=== PATIENT | male | born 1950 | race Asian ===

== ENCOUNTER 2017-10-09 11:03 | Outpatient (CLI) | payer OTHER | END 2017-10-09 19:28 | disposition home or self-care (01) | LOC: LABW 11:03 | DX: B35.1 Tinea unguium (principal) | CPT/HCPCS: 36415; 84450; 84460 ==

== ENCOUNTER 2017-11-19 10:36 | Outpatient (CLI) | payer OTHER | END 2017-11-19 19:32 | disposition home or self-care (01) | LOC: LABW 10:36 | DX: B35.1 Tinea unguium (principal) | CPT/HCPCS: 36415; 84450; 84460 ==

== ENCOUNTER 2018-01-23 09:39 | Outpatient (CLI) | payer OTHER | END 2018-01-23 19:35 | disposition home or self-care (01) | LOC: LABW 09:39 | DX: B35.1 Tinea unguium (principal) | CPT/HCPCS: 36415; 84450; 84460 ==

== ENCOUNTER 2019-06-11 11:22 | Outpatient (CLI) | payer OTHER | END 2019-06-11 19:48 | disposition home or self-care (01) | LOC: RAD 11:22 | DX: M25.511 Pain in right shoulder (principal) ==

== ENCOUNTER 2020-11-22 00:15 | Inpatient (IN) | payer OTHER ==
[~2020-11-22] VITALS: Ht 170.2 cm; Wt 77.4 kg
[2020-11-22] VITALS (11 sets, daily range): BP systolic 100–145; BP diastolic 47–73; TEMP 97.9–101.2
[2020-11-22 02:13] LABS: PLATELET COUNT 172 K/uL (142-355)
[2020-11-22 02:18] LABS: POTASSIUM 4.5 mmol/L (3.6-5.2); SODIUM 134 mmol/L (136-145)
[2020-11-22] MEDS ORDERED: SIMV20TA2 PO (12:27)
[2020-11-22] MEDS ORDERED: METF500T PO (12:28)
[2020-11-22] MEDS ORDERED: MIRTAZAPINE7.5 MG PO (12:30)
[2020-11-22] MEDS ORDERED: RISP2TAB2 PO (12:30)
[2020-11-22] MEDS ORDERED: GLIPIZIDE PO (12:32)
--- NOTE | 2020-11-22 14:40 | NUR ---
ASSISTED PATIENT TO CHAIR. PATIENT TOLERATED WELL. DENIES ANY PAIN, NEEDS OR SHORTNESS OF BREATH. CALL LIGHT WITHIN REACH AND PATIENT INSTRUCTED TO CALL FOR ANY ASSISTANCE OR NEEDS.
--- NOTE | 2020-11-22 18:25 | NUR ---
PATIENT TRANSFERRED BACK TO BED WITHOUT DIFFICULTY. NAD NOTED WITH PT AT THIS TIME. PATIENT DENIE ANY PAIN, NEEDS OR C/O OR SHORTNESS OF BREATH. BEDSIDE TABLE WITH PERSONAL ITEMS WITHIN REACH AND CALL LIGHT. NAD NOTED WITH PATIENT AT THIS TIME.
--- NOTE | 2020-11-22 20:14 | NUR ---
SHIFT ASSESSMENT COMPLETED. PATIENT IS RESTING QUIELTY WITH EYES OPEN. NO ACUTE DISTRESS NOTED. VITAL SIGNS TAKEN AND PATIENT DOES NOT HAVE HIS 02 ON AND HIS SPO2 IS STABLE AT 95% RA.
[2020-11-23] VITALS: BP 117/62; TEMP 98.4
[2020-11-23 04:00] VITALS: BP 123/76; TEMP 98.3
[2020-11-23 05:43] LABS: PLATELET COUNT 156 K/uL (142-355)
[2020-11-23 06:19] LABS: POTASSIUM 5.3 mmol/L (3.6-5.2)
--- NOTE | 2020-11-23 06:36 | NUR ---
PATIENT DID FAIRLY WELL THROUGH THE NIGHT. PATIENT DID STATED HE WAS READY TO GO HOME. NO OTHER EVENTS NOTED THROUGH THE NIGHT.
--- NOTE | 2020-11-23 07:11 | NUR ---
PATIENT GIVEN A COMPLETE BED BATH AND LINEN CHANGE. PATIENT WAS ABLE TO WAS HIS PERNEIUM W/O ASSISTANCE. PATIENT WAS NOT ON 02 AT THIS TIME AND WAS NOT IN NO ACUTE DISTRESS. 02 SATS WERE READING 91% ON RA.
[2020-11-23 08:00] VITALS: BP 114/53; TEMP 98.4
[2020-11-23 11:30] VITALS: BP 99/50; TEMP 98.8
--- NOTE | 2020-11-23 15:10 | NUR ---
REC'D CALL FROM NIKKI MENDOZA FROM [employer], PT'S DESIGN CHIEF. UPDATE GIVEN AT THIS TIME. NIKKI REPORTS SHE AND TRESSA BUSTOS WILL BE THE ONES CHECKING ON PT.
[2020-11-23 16:00] VITALS: BP 112/50; TEMP 98.6
[2020-11-23 20:00] VITALS: BP 121/51; TEMP 99.5
--- NOTE | 2020-11-23 20:00 | NUR ---
PT AWAKE AND ORIENTED LAYING IN BED WATCHING TV WITH NO S/S OF PAIN OR DISTRESS NOTED, RESP RATE NONLABORED, ON ROOM AIR, 20G IV LOCK INTACT TO R FA AND 20G IV INTACT TO L HAND WITH NS INFUSING AT 50ML/HR, SKIN WARM AND DRY, RADIAL PULSES INTACT, DENIES ANY PROBLEMS AT THIS TIME, BROUGHT PT WATER PER REQUEST. WILL MONITOR CLOSELY, RAILS UP, BED IN LOW POSITION, CALL LIGHT IN REACH.
--- NOTE | 2020-11-23 22:20 | NUR ---
PT AWAKE WATCHING TV WITH NO S/S OF ACUTE DISTRESS OR PAIN NOTED, DENIES ANY NEEDS OR PROBLEMS AT THIS TIME,RESP RATE NONLABORED, ON ROOM AIR, 200G IV INTACT TO L HAND WITH NS INFUSING AT 50ML/HR AND 20G IV LOCK INTACT TO R FA, TELEMETRY IN USE. FSBS 343, GAVE 4 UNITS SSI PER ORDER TO ABD. WILL MONITOR CLOSELY, RAILS UP, BED IN LOW POSITION, CALL LIGHT IN REACH. PT REMAINS ON ISOLATION FOR COVID-19.
[2020-11-24 00:01] VITALS: BP 114/57; TEMP 99.8
--- NOTE | 2020-11-24 00:05 | NUR ---
RESTING IN BED WITH EYES CLOSED, NO S/S OF PAIN OR DISTRESS NOTED, REMAINS ON ROOM AIR, WILL MONITOR CLOSELY, RAILS UP, BED IN LOW POSITION, CALL LIGHT IN REACH.
--- NOTE | 2020-11-24 01:10 | NUR ---
PT ATTEMPTED TO USE URINAL AND GOT SOME URINE ON FLOOR AND ON GOWN. PT WASHED OFF, GOWN AND BLANKET CHANGED DUE TO WET WITH URINE. NEW TELEMETRY LEAD APPLIED. PT DENIES ANY NEEDS OR PROBLEMS, REMAINS ON ROOM AIR WITH SAT OF 92%, NO ACUTE DISTRESS NOTED, BOTH IV SITES INTACT, TELEMETRY IN USE, ENCOURAGED TO CALL NEEDED, RAILS UP, BED IN LOW POSITION, CALL LIGHT IN REACH.
--- NOTE | 2020-11-24 03:45 | NUR ---
PATIENT'S SPO2 IS 90% ON ROOM AIR, PT PLACED ON 2LPM VIA NC. SPO2 INCREASED TO 95%.
[2020-11-24 04:00] VITALS: BP 140/56; TEMP 98.3
[2020-11-24 08:00] VITALS: BP 135/55; TEMP 98.8
[2020-11-24 08:12] LABS: POTASSIUM 4.9 mmol/L (3.6-5.2)
[2020-11-24 08:43] LABS: PLATELET COUNT 148 K/uL (142-355)
--- NOTE | 2020-11-24 11:20 | NUR ---
NOTIFIED BY IMPROVEMENT SPECIALIST ASHLEY THAT TEL WAS SHOWING PT TO HAVE A HR PF 146. UPON ENTERING THE ROOM PT WAS IN THE BR AMBULATING BACK TO CHAIR. PT WAS IN NO ACUTE DISTRESS AND NO CO AT THIS TIME. ASSISTED PT BACK TO BED AND HR SLOWLY GOING DOWN TO 114 BUT NOTED TO BE IRREG WITH ASCULATATION. 1130 DR ABRAHAM INFORMED OF PT'S HR TO BE IRREG AT THIS TIME WITH A RATE OF 114. NEW ORDERS REC'D TO OBTAIN 12 LEAD EKG
[2020-11-24 12:00] VITALS: BP 126/73; TEMP 97.6
--- NOTE | 2020-11-24 12:04 | NUR ---
I returned call to Linda Cordon [phone] who is pts 6a-6p caregiver today from [facility]. She stated she will sign pts dc papers and pick him up in [facility] when notified of discharge. She confirmed pt is a "romero of the [facility]". He does not have any family members in his home, only 24/7 caregivers from [place]. She stated pt has all of his usual meds and has PPE to care for pt at home. I also spoke with Adelina Mclaughlin [phone] who is pts interim case juanito. She also confirmed pt is a romero of the [facility] and to notify her and then caregiver when he is ready to discharge. She stated if he has any new medicine prescriptions that they must be called into [facility] in [place] [phone], they will be picked up that night and will be ready to dispense to pt the next morning. She reminded us to please be sure that all new meds are administered to pt before discharge on same day if possible, so that they could start the next dose the next am. Nurse- Sana Alberto RN notified and verbalizes understanding.
--- NOTE | 2020-11-24 12:45 | NUR ---
DR ABRAHAM INFORMED OF EKG RESULTS AND OF PT'S SATS NOTED TO DROP TO 90 % ON RA PER RESP. SO NC AR 2L PLACED ON PT AT THIS TIME. SATS UP TO 95%
--- NOTE | 2020-11-24 13:00 | NUR ---
NOTIFIED PER CLINICAL TRIALS MANAGER PT'S HR NOTED TO BE 120 AND IRREG. WENT TO PT'S ROOM AND PT NOTED TO BE IN BR AGAIN AT THIS TIME MO DSITRESS NOTED AT THIS TIME. ASSISTED PT BACK TO BED. PT NOTED TO BE IRREG BUT HR DECREASED SOON PT IS AT REST. PT REMOVED NC PRIOR TO GOING TO BR AND SATS 94% OON RA
--- NOTE | 2020-11-24 13:30 | NUR ---
PT ASSISTED TO BATHROOM BY YAKOV CHILDRESS RN. PT SOCKS CHANGED DUE TO BEING SOILED WITH URINE. PT'S FLOOR NOTED TO HAVE URINE IN IT. PT'S FLOOR CLEANED AT THIS TIME. PT ASSISTED BACK TO BED. ARNULFO NAGY GAVE PT URINAL AND INSTRUCTED HIM TO USE THE URINAL, URINAL PLACED WITHIN PT REACH.
--- NOTE | 2020-11-24 15:20 | NUR ---
PT SITTING UP ON BEDSIDE AT THIS TIME WATCHING TV. NO DISTRESS NOTED.
--- NOTE | 2020-11-24 15:35 | NUR ---
PT STANDING UP AT BEDSIDE. PT VOICES TO ARNULFO KENNEDY "I NEED TO PEE" PT GIVEN URINAL AND INSTRUCTED TO URINATE IN THE URINAL. PT VOIDED IN THE FLOOR AT THE BEDSIDE AND NOT IN THE URINAL. PT'S FLOOR CLEANED AND PT ASSISTED BACK TO BED. PT INSTRUCTED TO CALL IF HE NEEDS TO GET UP.
[2020-11-24 16:00] VITALS: BP 151/89; TEMP 101.2
--- NOTE | 2020-11-24 16:45 | NUR ---
PT NOTED TO HAVE A TEMP 101.2 ORALLY. PT VERY DROWSY WELL AT THIS TIME. PT HAD ANOTHER EPISODE OF HAVING URGE TO VOID BUT UNABLE TO GET UP IN TIME TO USE URINAL. WILL NOTIFIY DR ABRAHAM.
--- NOTE | 2020-11-24 17:15 | NUR ---
NEW ORDER REC'D FROM DR ABRAHAM TO OBTAIN IN AND OUT URINE AT THIS TIME. URINE OBTAINED PER STERILE TECHNIQUE PER MD ORDER. URINE OBSERVED AND NOTED TO BE CLEAR YELLOW. URINE SENT TO LAB AND PRN MEDS GIVEN FOR TEMP
--- NOTE | 2020-11-24 19:45 | NUR ---
PT AROUSES TO CLIENT SERVICES ADMINISTRATOR BEING IN ROOM, ALERT AND ORIENTED DENIES ANY NEEDS AT THIS TIME, ANSWERS QUESTIONS SLOWLY BUT APPROPRIATLY(ACTS SAME PREVIOUS NIGHT THAT CLIENT SERVICES ADMINISTRATOR CARED FOR PT), SMILING AT CLIENT SERVICES ADMINISTRATOR WHEN CLIENT SERVICES ADMINISTRATOR STATED SOMETHING FUNNY, IV SITES INTACT AND NS INFUSING AT 50ML/HR, ON ROOM AIR, TELEMETRY IN USE WITH REGULAR RATE. ORAL TEMP NOW 99.7(DECREASED), RESP RATE NONLABORED BUT RATE SLIGHTLY ELEVATED AROUND HIGH 20s PT DENIES ANY PROBLEMS BREATHING OR PAIN. URINAL IN REACH, BED IN LOW POSITION, CALL LIGHT IN REACH, RAILS UP X3, HOB REMAINS ELEVATED, WILL MONITOR CLOSELY.
[2020-11-24 20:00] VITALS: BP 121/59; TEMP 99.7
--- NOTE | 2020-11-24 21:48 | NUR ---
PT URINATED IN THE BED WHILE ATTEMPTING TO USE THE URINAL. PT'S LINENS AND BRIEF WERE CHANGED AND PT'S BOTTOM CLEANED WITH WASHCLOTH AND WARM WATER. PT TOLERATED LINEN CHANGE WELL WITH HOB LOWERED, NO ACUTE DISTRESS WAS NOTED.
--- NOTE | 2020-11-24 23:00 | NUR ---
RESTING WITH EYES CLOSED IN POSITION OF COMFORT, NO S/S OF PAIN OR DISTRESS NOTED, IV SITES INTACT WITH NS INFUSING AT 50ML/HR, ON ROOM AIR, TELEMETRY IN USE, WILL MONITOR CLOSELY, RAILS UP, BED IN LOW POSITION, ON ISOLATION FOR COVID.
[2020-11-25] VITALS: BP 126/64; TEMP 97.8
--- NOTE | 2020-11-25 01:50 | NUR ---
PT AROUSES AND STATES HE NEEDS TO URINATE, ASSISTED PT TO GET URINAL, BEFORE RN ICU COULD GET DEPEND UNDONE SO THAT PT COULD URINATE IN URINAL PT BEGAN TO URINATE AND COULD NOT HOLD IT. DID URINATE 500ML CLEAR LIGHT YELLOW URINE IN URINAL. DEPEND AND CHUX UNDER PT CHANGED AND PT WIPED WITH WET WIPE(PT WIPED HIS FRONT AREA PER SELF) ASSISTED TO ROLL SIDE TO SIDE SO THAT DEPEND/CHUX COULD BE CHANGED UNDER HIM. DENIES ANY OTHER NEEDS OR PROBLEMS, NO ACUTE DISTRESS NOTED, RESP RATE 22 NONLABORED, IV SITES INTACT WITH FLUID ONGOING, TELEMETRY IN USE, ENCOURAGED TO CALL NEEDED, RAILS UP X3, BED IN LOW POSITION, CALL LIGHT IN REACH, WILL MONITOR CLOSELY.
--- NOTE | 2020-11-25 03:42 | NUR ---
RESTING WITH EYES CLOSED, NO S/S OF PAIN OR DISTRESS NOTED, WILL MONITOR CLOSELY, RAILS UP, BED IN LOW POSITION, CALL LIGHT IN REACH.
[2020-11-25 04:00] VITALS: BP 141/73; TEMP 97.5
--- NOTE | 2020-11-25 05:51 | NUR ---
RESTING IN BED IN POSITION OF COMFORT WITH EYES CLOSED, NO S/S OF PAIN OR DISTRESS NOTED, RESP RATE NONLABORED, ON ROOM AIR, IV SITES INTACT AND NS INFUSING AT 50ML/HR, TELEMETRY IN USE, WILL MONITOR CLOSELY, RAILS UP X3, BED IN LOW POSITION, CALL LIGHT AND URINAL IN PT'S REACH.
[2020-11-25 08:00] VITALS: TEMP 98.3
[2020-11-25 08:17] LABS: PLATELET COUNT 153 K/uL (142-355)
--- NOTE | 2020-11-25 08:26 | NUR ---
ROOM AIR SPO2 AT 88%. PLACED PT ON 2LPM NC AT 28%. SPO2 NOW AT 92%
[2020-11-25 08:44] LABS: POTASSIUM 4.3 mmol/L (3.6-5.2)
[2020-11-25 12:20] VITALS: BP 121/67; TEMP 103.3
[2020-11-25 16:00] VITALS: BP 120/69; TEMP 99.3
[2020-11-25 20:00] VITALS: BP 138/73; TEMP 98.8
[2020-11-26] VITALS: BP 132/63; TEMP 98.2
--- NOTE | 2020-11-26 03:22 | NUR ---
LATE ENTRY: 11/25/20 PATIENT HAS HAD SEVERAL RUNS OF V TACH BUT THEY ARE NOT SUSTAINED. I CALLED THE ER DOCTOR AND REPORTED ON THE PATIENT. THE DOCTOR SAID,"IF ITS NOT SUSTAINED AND HE HAS NO SYMPTOMS LETS JUST WATCH HIM."
--- NOTE | 2020-11-26 03:28 | NUR ---
LATE ENTRY: 11/25/20 2200 PATIENT HAS HAD HIS BRIEF CHANGED AND WAS REPOSITIONED.
[2020-11-26 04:00] VITALS: BP 134/61; TEMP 98.8
--- NOTE | 2020-11-26 06:41 | NUR ---
patient was changed and repositioned in bed
[2020-11-26 06:49] LABS: PLATELET COUNT 145 K/uL (142-355)
[2020-11-26 07:18] LABS: POTASSIUM 4.3 mmol/L (3.6-5.2)
[2020-11-26 08:13] VITALS: BP 105/56; TEMP 99.9
[2020-11-26 11:53] VITALS: BP 108/60; TEMP 98.3
[2020-11-26 16:23] VITALS: BP 130/68; TEMP 98.7
[2020-11-26 20:00] VITALS: BP 110/56; TEMP 99.2
--- NOTE | 2020-11-26 21:45 | NUR ---
NEW 22G TO THE LEFT HAND INITIATED AT THIS TIME. NO S/S OF EDEMA OR ERRYTHEMA TO THE SITE. IV FLUSHED WELL AND NO DISTRESS NOTED.
[2020-11-27] VITALS (7 sets, daily range): BP systolic 97–141; BP diastolic 55–65; TEMP 98.2–103.1
[2020-11-27 06:12] LABS: PLATELET COUNT 151 K/uL (142-355)
[2020-11-27 06:41] LABS: POTASSIUM 4.1 mmol/L (3.6-5.2)
--- NOTE | 2020-11-27 12:43 | NUR ---
PER PATIENT'S REQUEST, TV TURNED TO JAZZ MUSIC CHANNEL. PATIENT IS SMILING AND CONVERSING WITH STAFF.
--- NOTE | 2020-11-27 19:45 | NUR ---
PT. HAD A FEVER OF 101.3. TYLENOL 100 MG IVPB INFUSING AT THIS TIME.
[2020-11-28] VITALS: BP 114/49; TEMP 98
--- NOTE | 2020-11-28 | NUR ---
PT'S TEMP HAS RESOLVED TO 98.0.
[2020-11-28 04:00] VITALS: BP 100/48; TEMP 99.3
[2020-11-28 05:42] LABS: PLATELET COUNT 173 K/uL (142-355)
[2020-11-28 06:15] LABS: POTASSIUM 3.8 mmol/L (3.6-5.2)
[2020-11-28 08:00] VITALS: BP 137/74; TEMP 98.2
[2020-11-28 12:00] VITALS: BP 103/62; TEMP 101.9
[2020-11-28 16:00] VITALS: BP 105/46; TEMP 97.6
[2020-11-28 20:00] VITALS: BP 124/53; TEMP 101.2
--- NOTE | 2020-11-28 21:25 | NUR ---
SHIFT ASSESSMENT COMPLETED. PATIENT NOTED WITH A FEVER OF 101.2. TYLENOL IV GIVEN PER PRN ORDER.
[2020-11-29] VITALS: BP 121/77; BP 129/61; TEMP 101.3; TEMP 98.2
[2020-11-29 04:00] VITALS: BP 127/44; TEMP 102.7
[2020-11-29 05:36] LABS: PLATELET COUNT 192 K/uL (142-355)
[2020-11-29 06:04] LABS: POTASSIUM 4.3 mmol/L (3.6-5.2)
--- NOTE | 2020-11-29 06:32 | NUR ---
PATIENT NOTED WITH A FEVER OF 102.7 ORAL. PATIENT GIVEN TYLENOL IV 1000 MG PRN ORDERED.
[2020-11-29 08:00] VITALS: BP 116/62; TEMP 99.8
--- NOTE | 2020-11-29 11:27 | NUR ---
PT HIGH FOWLERS IN BED WATCHING TV. PT ALERT. PT WILL GIVE VERBAL FEEDBACK, LOGICAL FEEDBACK. UPON WALKING IN PTS ROOM TO ADMINISTER AM MEDS PT WAS STANDING UP IN THE BATHROOM WITH DEPENDS INTACT BUT SATURATED WITH URINE. ASSISTED PT AND CHANGED DEPENDS AND ASSISTED PT TO BED. PT SELF-FED BREAKFAST WITH SET-UP NEEDED. PTS LEVEMIR NOT GIVEN R/T PT ONLY EATING 75% OF BREAKFAST. PT CONTINUES TO APPEAR UNFOCUSED, BUT WILL FOLLOW VERBAL COMMAND. BED ALARM ON.
[2020-11-29 12:00] VITALS: BP 129/70; TEMP 99.7
[2020-11-29 16:00] VITALS: BP 121/60; TEMP 100.4
[2020-11-29 20:00] VITALS: BP 119/64; TEMP 99.2
--- NOTE | 2020-11-29 21:59 | NUR ---
PM. MEDS GIVEN AT THIS TIME. PT. TOLERATED WELL. NO S/S OF ACUTE DISTRESS NOTED AT THIS TIME. PT'S BS WAS 82. NO COVERAGE NEEDED.
--- NOTE | 2020-11-30 01:12 | NUR ---
PT. TEMP IS 101.3. GAVE TYLENOL 1000 MG IVB. PT'S TEMP CURRENTLY DOWN TO 99.2
[2020-11-30 04:00] VITALS: BP 143/74; TEMP 99.2
[2020-11-30 05:34] LABS: PLATELET COUNT 215 K/uL (142-355)
[2020-11-30 05:46] LABS: POTASSIUM 4.2 mmol/L (3.6-5.2)
[2020-11-30 08:00] VITALS: BP 115/56; TEMP 100.4
--- NOTE | 2020-11-30 10:44 | NUR ---
PT. SPO2 WAS 79-88% ON 2LNC HE WAS PLACAED ON 50% VENTIMASK. IS TOLERATING WELL. WILL CONTINUE TO MONITOR.
[2020-11-30 12:00] VITALS: BP 108/69; TEMP 100.1
[2020-11-30 16:00] VITALS: BP 120/67; TEMP 98.4
[2020-11-30 20:00] VITALS: BP 157/74; TEMP 98.5
[2020-12-01] VITALS: BP 133/45; TEMP 100
[2020-12-01 04:00] VITALS: BP 104/56; TEMP 99.2
[2020-12-01 06:07] LABS: POTASSIUM 4.5 mmol/L (3.6-5.2)
[2020-12-01 06:45] LABS: PLATELET COUNT 288 K/uL (142-355)
[2020-12-01 08:00] VITALS: BP 122/60; TEMP 100.1
[2020-12-01 12:00] VITALS: BP 97/43; TEMP 98.6
[2020-12-01 16:00] VITALS: BP 136/76; TEMP 98.8
[2020-12-01 20:00] VITALS: BP 116/62; TEMP 100.5
[2020-12-02] VITALS: BP 112/50; TEMP 98.9
[2020-12-02 04:00] VITALS: BP 118/54; TEMP 98.7
[2020-12-02 05:01] LABS: PLATELET COUNT 317 K/uL (142-355)
[2020-12-02 07:30] VITALS: BP 135/58; TEMP 101.5
[2020-12-02 12:00] VITALS: BP 135/58; TEMP 101.5
--- NOTE | 2020-12-02 15:05 | NUR ---
PT TEMP 100.1, IBUPROFEN ADMINISTERED AT THIS TIME, WILL REASSESS
[2020-12-02 16:00] VITALS: BP 121/66; TEMP 99.2
[2020-12-02 20:00] VITALS: BP 115/61; BP 126/68; TEMP 100.8; TEMP 99.7
[2020-12-03] VITALS: BP 120/70; TEMP 99.5
[2020-12-03 04:00] VITALS: BP 139/79; TEMP 99.1
--- NOTE | 2020-12-03 04:59 | NUR ---
RT called to PT room for decreased SATs.PT walked restroom and back to bed. SATs mid 80's. PT on 6L NC. Placed PT on 40% Venti. Nurse and RT @ bedside. RT changed PT back over to 4L NC. PT maintaing SATs of 91%.
[2020-12-03 05:55] LABS: PLATELET COUNT 360 K/uL (142-355)
--- NOTE | 2020-12-03 06:09 | NUR ---
Patient has been awake a large portion of this shift. He has repeated got out of bed, and attempting to walk to bathroom without assistance. He doesn't make it to the bathroom before staff gets to the room. Bed alarm is set and staff runs to the room, but has to dress out in proper ppe, before entering the room. d/t patient being covid positive. Patient is educated about the risk of falls, and reminded to use the call light for assistance. Patient is on O2 @ 4 lpm, via n/c, and his O2 sat downs to 85-87 when he is off of the O2, and ambulating to bathroom. It comes back up after patient returns to bed and gets back on his O2, via n/c. Patient has urinated on the floor all 3 times that he has ambulated to the bathroom, with assistance. Pericare provided and briefs changed. Call light is within reach and bed alarm is on. Tele is being monitored at nurses station. No acute distress noted. via n/c and the last time that he
[2020-12-03 08:00] VITALS: BP 153/66; TEMP 99.5
--- NOTE | 2020-12-03 08:00 | NUR ---
IN PT'S ROOM FOR MORNING VITALS, PT IS ASLEEP IN LF ON HIS LT SIDE. NASAL CANNULA IS ON AT 4 LPM. PT IS SHOWING NO SIGNS OF DIFFICULTY BREATHING AT THIS TIME. PT DOES HAVE A STRONG DRY AND PERSISTENT COUGH. PT IS LEFT TO REST WITH LIGHTS OFF, BED ALARM ON, AND CALL LIGHT WITHIN REACH. WILL CONTINUE TO MONITOR.
[2020-12-03 12:00] VITALS: BP 127/69; TEMP 98.4
[2020-12-03 16:00] VITALS: BP 143/70; TEMP 98.9
--- NOTE | 2020-12-03 17:03 | NUR ---
PT TRANSFERRED FROM COVID UNIT TO [facility] SURG ISOLATION ROOM. PT ALERT AND CONFUSED AT TIMES. CONTINUES TO ATTEMPT TO GET OUT OF BED. BED ALARM ON, BED IN LOW POSITION AND SIDE RAILS UP X3. PTS IV SITE TO LEFT HAND NO LONGER INTACT AND UNABLE TO ACCESS. MULTIPLE ATTEMPTS HAVE BEEN MADE TO START A NEW IV SITE AND ALL ATTEMPTS HAVE BEEN UNSUCESSFUL. ATTEMPTED AGAIN AT 1600 TO START IV SITE AND PT PULLED HIS HAND AWAY,SHOUTING "STOP WOMAN, DON'T DO THAT WOMAN!" ATTEMPTS HAVE BEEN MADE BY VARIOUS NURSES ON SHIFT AND NO SUCCESS. DR MARTE NOTIFIED AND AWARE OF SITUATION. PT REFUSED TO GET A BATH ON THIS SHIFT.
--- NOTE | 2020-12-03 17:13 | NUR ---
PT TRANFERRED TO MED SURG ISOLATION ROOM AT 1430.
[2020-12-03 20:00] VITALS: BP 134/64; TEMP 100.4
--- NOTE | 2020-12-03 20:00 | NUR ---
IN PT'S ROOM TO CHECK ON HIM. PT RESTING WITH EYES CLOSED. NAD NOTED AT THIS TIME. BED LOCKED AND LOW WITH CALL COSTA IN REACH. WILL CONTINUE TO MONITOR
--- NOTE | 2020-12-03 22:30 | NUR ---
IN ROOM TO CHECK ON PT. PT'S O2 SAT 89 ON 4L OF O2 VIA NC. PT INCREASED TO 5L O2 VIA NC---PT'S O2 SAT CAME UP TO 90-91%. RESPIRATORY NOTIFED.
[2020-12-04] VITALS: BP 149/73; TEMP 99.6
--- NOTE | 2020-12-04 | NUR ---
PT'S O2 LEVEL DROPPED TO LOW 80'S WHEN PT AMBULATED 3 FEET TO [facility] [place] RESP THERAPIST IN ROOM TO PLACE PT ON HIGH FLOW O2 50L/M AT 50%. PT'S O2 SAT ON HIGH FLOW IS 94% AT THIS TIME. NAD NOTED. WILL CONTINUE TO MONITOR.
[2020-12-04 04:00] VITALS: BP 159/85; TEMP 100.5
--- NOTE | 2020-12-04 04:00 | NUR ---
FRESH TELE LEADS AND GOWN PLACED ON PT. PT TEMP AT THIS TIME IS 100.5 ORAL. PRN TYLENOL IV HUNG (SEE EMAR). PT RESTING QUIETLY. WILL CONTINUE TO MONITOR. NAD NOTED AT THIS TIME.
[2020-12-04 05:27] LABS: PLATELET COUNT 351 K/uL (142-355)
[2020-12-04 08:00] VITALS: BP 145/84; TEMP 98.7
[2020-12-04 12:00] VITALS: BP 139/79; TEMP 98.3
--- NOTE | 2020-12-04 13:33 | NUR ---
CHANGED PATIENT FRMM HFNC TO NC AT 5LPM. SATING 96%
--- NOTE | 2020-12-04 14:39 | NUR ---
PT IN LOW FOWLERS POSITION IN BED. PT ON HIGH FLOW O2 IN AM AND SATS ABOVE 90S. RESPIRATORY CHANGED PT TO NC AT 9LPM, PT SATS ABOVE 90. PT PUSHED CALL BUTTON ON HIS OWN AND ASKED TO GO TO THE BATHROOM. PT ED ON HOW TO USE THE CALL BUTTON INSTEAD OF GETTING OUT OF BED BY HIMSELF. WITH ASSISTANCE PT USES BEDSIDE COMMODE. PT HAD BM X1. TRESSA BUSTOS, PATTERN PERFORATING MACHINE OPERATOR CALLED TO GET AN UPDATE ON PT. HER CONTACT NUMBER IS ON HIS CHART. PTS BED ALARM ON. LEVEMIR NOT ADMINISTERED IN AM R/T PT UT=419 AND PT EATS 25-50% OF BREAKFAST.
[2020-12-04 16:00] VITALS: BP 152/82; TEMP 98.9
[2020-12-04 20:00] VITALS: BP 123/63; TEMP 99.6
[2020-12-05] VITALS: BP 149/75; TEMP 100.5
--- NOTE | 2020-12-05 00:55 | NUR ---
PATIENT RECIEVED A NEW IV SITE. HE NOW HAS A 22G TO THE LEFT HAND. IT IS WNL AND SALINE LOCKED
--- NOTE | 2020-12-05 00:57 | NUR ---
PATIENT HAS A FEVER OF 100.5, PATIENT WAS GIVEN PRN TYEANOL
--- NOTE | 2020-12-05 03:38 | NUR ---
PATIENT HAS BEEN PULLED UP IN THE BED AND REPOSITIONED
[2020-12-05 04:00] VITALS: BP 127/65; TEMP 98.6
--- NOTE | 2020-12-05 04:53 | NUR ---
PATIENT HAS BEEN HELPPED TO THE BSC, PATIENT WAS PLACED IN BED AND REPOSITIONED
[2020-12-05 08:00] VITALS: BP 133/57; TEMP 98.1
--- NOTE | 2020-12-05 08:23 | NUR ---
PT'S O2 BEGAN TO DROP INTO THE HIGH 70'S RANGE. DESCRIPTIVE CATALOG LIBRARIAN AND RT WENT TO PT'S ROOM AND CHANGED PT FROM NASAL CANNULA TO VENTI MASK AT 50%. O2 SATURATION IS NOW MAINTAINING AT 92-93%.
--- NOTE | 2020-12-05 09:00 | NUR ---
PT WAS SWITCHED TO NASAL CANULA TO EAT BREAKFAST AND TAKE MORNING MEDICATIONS. PT TOLERATED THE SWITCH WELL AND WAS SWITCHED BACK TO VENTI AFTER FINISHING BREAKFAST. PT'S O2 SAT IS CURRENTLY AT 95%.
[2020-12-05 12:00] VITALS: BP 140/72; TEMP 99.8
[2020-12-05 16:00] VITALS: BP 139/63; TEMP 99.6
[2020-12-05 20:00] VITALS: BP 144/79; TEMP 100.1
[2020-12-06] VITALS: BP 141/74; TEMP 98.5
[2020-12-06 04:00] VITALS: BP 130/58; TEMP 98.8
[2020-12-06 06:18] LABS: PLATELET COUNT 384 K/uL (142-355)
[2020-12-06 06:39] LABS: POTASSIUM 4.6 mmol/L (3.6-5.2)
[2020-12-06 08:00] VITALS: BP 156/74
[2020-12-06 12:00] VITALS: BP 136/70; TEMP 98.2
[2020-12-06 16:00] VITALS: BP 148/73; TEMP 98.6
[2020-12-06 20:00] VITALS: BP 140/71; TEMP 97.6
[2020-12-07] VITALS: BP 154/74; TEMP 97.8
[2020-12-07 04:00] VITALS: BP 150/65; TEMP 97.7
[2020-12-07 06:03] LABS: PLATELET COUNT 384 K/uL (142-355)
[2020-12-07 06:33] LABS: POTASSIUM 4.7 mmol/L (3.6-5.2)
[2020-12-07 08:00] VITALS: BP 129/64; TEMP 98.6
--- NOTE | 2020-12-07 08:57 | NUR ---
i left a voicemail for pts new clinical case manager, Agustina Astorga, with [facility] to discuss pts discarge needs.
[2020-12-07 12:00] VITALS: BP 136/68; TEMP 97.9
--- NOTE | 2020-12-07 12:00 | NUR ---
TESHA HEAD RN WENT TO START REMDESIVIR VIA IV LINE. IV IS NO LONGER FLUSHING AND WILL NOT ALLOW THE MEDICINE TO RUN IN. ISSUE WAS DISCUSSED WITH AND MD STATED TO DC THE REMDESIVIR. AWAITING FURTHER ORDERS.
--- NOTE | 2020-12-07 14:38 | NUR ---
I s/w Julia Burns, Community cocktail lounge manager @ [place] [phone], she stated we can get pts oxygen locally and it can be dropped off here at the hospital and when pt is ready for discharge to please call Nusrat Andre [phone] or [phone] and she will then send transport to get pt.
--- NOTE | 2020-12-07 14:58 | NUR ---
i rec call back from Agustina Astorga [phone], she stated she worked all night so was sleeping today, she is aware we have ordered oxygen ans she will help coordinate any new meds with [facility]. I notified her that Elva Maxer just arrived to transport pt home.
[2020-12-07] MEDS ORDERED: CHOL100034 PO (14:59)
[2020-12-07] MEDS ORDERED: ASCO500T18 PO (14:59)
[2020-12-07] MEDS ORDERED: FAMOTIDINE20 MG PO (15:00)
[2020-12-07] MEDS ORDERED: IPRAAER INH (15:01)
[2020-12-07] MEDS ORDERED: ZINC220C4 PO (15:02)
--- NOTE | 2020-12-07 15:30 | NUR ---
PT HAS BEEN DISCHARGED FROM THE HOSPITAL TO THE CARE OF [facility]. AN EMPLOYEE OF THE [employer] CAME TO LEAD CASHIER THE PT. PT WAS DISCHARGED TO THE VEHICLE VIA WHEELCHAIR. IV WAS REMOVED WITHOUT DIFFICULTY WITH CATHETER STILL INTACT. DISCHARGE PAPERWORK WAS SIGNED BY THE EMPLOYEE FROM [facility], DISCHARGE INSTRUCTIONS AND TEACHING WAS GIVEN TO THE EMPLOYEE ALONG WITH PRINT OUT OF EDUCATION FOR FURTHER REVIEW IF NEEDED. PT WAS SENT HOME WITH HOME O2 EQUIPMENT AND WAS HOOKED TO THE PORTABLE OXYGEN WHILE IN THE VEHICLE. PERSONAL BELONGINGS WERE GIVEN TO THE EMPLOYEE FROM THE [employer]. NAD WAS NOTED UPON DISCHARGE FROM THE HOSPITAL.
== END 2020-12-07 18:07 | disposition home or self-care (01) | DRG 177 ==
LOC: ED 00:15 → MED/SURG 05:30 → ED 06:00 → MED/SURG 12-03 14:00
PROVIDERS: Emergency Medicine Emergency Medical Services; Internal Medicine Endocrinology, Diabetes & Metabolism; ADMIT Internal Medicine; ATTEND Internal Medicine
DX: U07.1 COVID-19 (principal); J96.01 Acute respiratory failure with hypoxia; E11.9 Type 2 diabetes mellitus without complications; G31.84 Mild cognitive impairment of uncertain or unknown etiology; E78.49 Other hyperlipidemia; R19.7 Diarrhea, unspecified
CPT/HCPCS: 36415; 80053; 81000; 82728; 82947; 82948; 84484; 85027; 85379; 85610; 86140; 87040; 87502; 87635; 93005; 94760; 96360; 96365; 96375; 99284; J0132; J0456; J0696; J1100; J1650; J1815; J2930; Q9963; U0003

== ENCOUNTER 2021-05-10 21:11 | Emergency (ER) | payer OTHER ==
[~2021-05-10] VITALS: Ht 170.2 cm; Wt 70.3 kg
[~2021-05-10 21:11] MED LIST: ASCO500T18 PO; CHOL100034 PO; FAMOTIDINE20 MG PO; GLIPIZIDE PO; IPRAAER INH; METF500T PO; MIRTAZAPINE7.5 MG PO; RISP2TAB2 PO; SIMV20TA2 PO; ZINC220C4 PO
[2021-05-10 22:18] LABS: PLATELET COUNT 155 K/uL (142-355)
[2021-05-10 22:27] LABS: POTASSIUM 4.2 mmol/L (3.6-5.2)
[2021-05-11 03:45] VITALS: BP 128/60; TEMP 98.4
== END 2021-05-11 03:45 | disposition home or self-care (01) ==
LOC: ED 21:11
PROVIDERS: Emergency Medicine
DX: Z01.30 Encounter for examination of blood pressure without abnormal findings (principal)
CPT/HCPCS: 36415; 80053; 81000; 85027; 93005; 99283

== ENCOUNTER 2021-10-25 18:16 | Emergency (ER) | payer OTHER ==
[~2021-10-25] VITALS: Ht 170.2 cm; Wt 70.3 kg
[2021-10-25 18:54] LABS: PLATELET COUNT 238 K/uL (142-355)
[2021-10-25 19:15] LABS: POTASSIUM 4.2 mmol/L (3.6-5.2)
[2021-10-25 19:17] LABS: PARTIAL THROMBOPLASTIN TIME 28.6 SECONDS (24.5-33.6)
[2021-10-25 20:30] VITALS: BP 147/81; TEMP 97.9
== END 2021-10-25 20:40 | disposition home or self-care (01) ==
LOC: ED 18:16
PROVIDERS: Hospitalist
DX: E86.0 Dehydration (principal); E11.65 Type 2 diabetes mellitus with hyperglycemia; I49.3 Ventricular premature depolarization; R53.1 Weakness
CPT/HCPCS: 80053; 80320; 81002; 81015; 82550; 83880; 84484; 85027; 85610; 85730; 87077; 87086; 87088; 87186; 93005; 96365; 96375; 99284; J0696; J1815

== ENCOUNTER 2021-10-27 13:04 | Observation (INO) | payer OTHER ==
[~2021-10-27] VITALS: Ht 167.6 cm; Wt 83.6 kg
[2021-10-27 13:04] VITALS: BP 122/69; TEMP 98.7
[2021-10-27 13:30] LABS: PLATELET COUNT 221 K/uL (142-355)
[2021-10-27 13:47] LABS: POTASSIUM 4.6 mmol/L (3.6-5.2)
--- NOTE | 2021-10-27 15:19 | NUR ---
PT ADMITTED FROM ED TO MED-SURG FLOOR AT 1451. REPORT GIVEN BY ED NURSE MATTHIEU AT 1411. PT HAS 1 LITER OR NS INFUSING AND LEVAQUIN THAT WAS BEGUN IN ED. ADMITED TO FLOOR FOR: UTI,DEHYDRATION, UNCONTROLLED DM. BLOOD GLUCOSE IN OY=905. PT WAS GIVEN NOVOLIN REGULAR 1OU SQ IN ED. HAS 22 GA TO RIGHT HAND INTACT WITH NO SWELLING/REDNESS NOTED. PT ALERT AND ORIENTED TO NAME AND PLACE. AMBULATED FROM ER STRETCHER TO BED WITH A STEADY GAIT. PT STATES UPON ENTERING ROOM, "I HAVE TO PEE." PT GIVEN A URINAL AND VOIDED IN URINAL WITH NO ASSISTANCE. REFUSED TO TAKE OFF PERSONAL CLOTHING AND WEAR GOWN. ORIENTED PT TO CALL LIGHT AND TO CALL IF HE NEED TO GO TO THE BATHROOM. PT VERBALIZED UNDERSTANDING. BED ALARM ON, BED LOCKED AND IN LOW POSITION. CONTINUE TO MONITOR.
[2021-10-27] MEDS ORDERED: FINASTERIDE5 MG PO ×2 (15:21)
[2021-10-27] MEDS ORDERED: DOXAZOSIN4 M1 PO ×2 (15:21)
[2021-10-27] MEDS ORDERED: GLIPIZIDE ER PO ×2 (15:23)
[2021-10-27] MEDS ORDERED: INSU300I SC ×2 (15:24)
[2021-10-27] MEDS ORDERED: METFORMIN HYD1000 MG PO ×2 (15:25)
[2021-10-27] MEDS ORDERED: METFORMIN PO ×2 (15:27)
[2021-10-27 15:29] VITALS: BP 111/62; TEMP 98.9; Ht 167.6 cm; Wt 83.6 kg
[2021-10-27] MEDS ORDERED: RISP1TAB PO ×2 (15:30)
[2021-10-27] MEDS ORDERED: EPIPEN 2-P0.3 MG/0.3 IM ×2 (15:32)
[2021-10-27] MEDS ORDERED: REMERON SOLTAB15 MG PO ×2 (15:33)
[2021-10-27] MEDS ORDERED: MIRALAX17 GM/SCOO PO ×2 (15:34)
[2021-10-27] MEDS ORDERED: SENNA PLUS PO ×2 (15:35)
[2021-10-27 15:54] VITALS: BP 111/62; TEMP 98.9
--- NOTE | 2021-10-27 16:27 | NUR ---
PT RESTING QUIETLY WITH EYES CLOSED. BLOOD GLUCOSE AT [id number], ADMINISTERED 10U OF NOVOLIN REGULAR INSULIN PER SLIDING SCALE PROTOCOL. ADMINISTERED LOVENOX AND METFORMIN ORDERED. PT TOLERATED WELL WITH NO DIFFICULTY SWALLOWING. DINNER TRAY SERVED,PT STATES "JUST SIT IT OVER THERE AND I WILL GET IT LATER." REFERRING TO SITTING TRAY ON THE TABLE. CONTINUE TO MONITOR.
--- NOTE | 2021-10-27 18:03 | NUR ---
PTS HEAD CONCIERGE, TRESSA FROM [facility] VISITED PT. HER PHONE NUMBER IS WRITTEN ON BOARD IN PTS ROOM FOR ANY QUESTIONS REGARDING PT OR WHEN PT IS DISCHARGED. SHE ASSISTED PT WITH CHANGING HIS CLOTHES. SHE BROUGHT PTS DENTURES, UPPER DENTURES. HEAD CONCIERGE TALKED TO THIS NURSE REGARDING THE SIGNIFICANT CHANGE IN PTS BEHAVIOR. STATED THAT PT HAS BEEN LETHARGIC, FACIAL DROOPING TO LEFT SIDE OF FACE AND PT "DRAGGING" HIS LEFT FOOT WHEN HE WALKS. STATES THAT THIS BEHAVIOR WAS NOTICED ONLY A FEW DAYS AGO,PRIOR TO HOSPITAL ADMISSION. CONSULTED WITH CHARGE NURSEEVIN AND CHARGE NURSE WILL CONSULT WITH HCP(SHAYY) REGARDING HEAD CONCIERGE'S CONCERN. CONTINUE TO MONITOR.
[2021-10-27 20:00] VITALS: BP 99/36; TEMP 101.6
--- NOTE | 2021-10-27 21:38 | NUR ---
PT AWAKE WITH NO DISTRESS NOTED. IV INTACT, RESP RATE NONLABORED. GAVE NIGHTLY PO MEDICATION WITH NO PROBLEMS. FSBS IS 335, GAVE 8 UNITS SSI PRN TO ABD PER ORDER. PT GIVEN SUGAR FREE DRINK MIX IN A BOTTLE OF WATER. WILL MONITOR CLOSELY, RAILS UP, BED IN LOW POSITION WITH ALARM ON, CALL LIGHT IN REACH.
--- NOTE | 2021-10-27 21:50 | NUR ---
ORAL TEMP 101.1, GAVE TYLENOL 650MG PO PRN, WILL RECHECK IN AN HOUR. PT DENIES ANY PAIN OR ANY OTHER NEEDS. RAILS UP, BED IN LOW POSITION WITH ALARM ON, CALL LIGHT IN REACH.
[2021-10-27 22:30] VITALS: TEMP 99.8
--- NOTE | 2021-10-27 22:30 | NUR ---
ORAL TEMP HAS DECREASED TO 99.8 AT THIS TIME, NO REACTIONS NOTED TO PRN TYLENOL. WILL MONITOR, RAILS UP, BED IN LOW POSITION WITH ALARM ON, CALL LIGHT IN REACH.
[2021-10-28] VITALS (7 sets, daily range): BP systolic 98–132; BP diastolic 44–76; TEMP 99.1–102.2
--- NOTE | 2021-10-28 00:20 | NUR ---
PT AWAKE WITH NO DISTRESS NOTED, BED ALARM SOUNDED PT FOUND STANDING AT BEDSIDE USING URINAL. REMINDED PT TO CALL FOR ASSIST. RESP RATE NONLABORED, TELEMETRY IN USE,DENIES ANY PAIN OR PROBLEMS AT THIS TIME. PT NOW BACK LAYING IN BED ON L SIDE. WILL MONITOR, RAILS UP, BED IN LOW POSITION WITH ALARM ON, CALL LIGHT IN REACH.
--- NOTE | 2021-10-28 01:35 | NUR ---
BED ALARM SOUNDED, PT STANDING ON SIDE OF BED USING URINAL, NO ACUTE DISTRESS NOTED. URINATED 175ML YELLOW URINE. WILL MONITOR, RAILS UP, BED IN LOW POSITION WITH ALARM ON, CALL LIGHT IN REACH. ENCOURAGED TO CALL NEEDED.
--- NOTE | 2021-10-28 03:45 | NUR ---
RESTING WITH EYES CLOSED, NO S/S OF PAIN OR DISTRESS NOTED, IV INTACT WITH NS INFUSING AT 75ML/HR, TELEMETRY IN USE, RESP RATE NONLABORED, WILL MONITOR CLOSELY, RAILS UP, BED IN LOW POSITION WITH ALARM ON, CALL LIGHT IN REACH.
[2021-10-28 04:27] LABS: PLATELET COUNT 198 K/uL (142-355)
[2021-10-28 04:33] LABS: POTASSIUM 3.7 mmol/L (3.6-5.2)
--- NOTE | 2021-10-28 07:42 | NUR ---
PT LAYING LOW FOWLERS IN BED WITH COVERS PULLED OVER HIS HEAD, COVERING ENTIRE FACE AND HEAD. BREAKFAST TRAY SERVED AND PT STATES "JUST SIT IT TO THE SIDE AND I WILL GET IT LATER." IVF INFUSING OF NS AT 75ML/HR ORDERED. CONTINUE TO MONITOR.
--- NOTE | 2021-10-28 08:30 | NUR ---
SET UP BREAKFAST TRAY FOR PT, ASSISTED PT TO SITTING UP ON THE SIDE OF BED TO EAT BREAKFAST. PT ATE 100I% OF MEAL, DRUNK COFFEE AND MILK. LEVEMIR HELD ON PT BLOOD GLUCOSE=85, HCP NOTIFIED. CONTINUE TO MONITOR.
--- NOTE | 2021-10-28 08:45 | NUR ---
PTS TEMP=99.3, ADMINISTERED TYLENOL ORDERED TO PREVENT ELEVATED TEMP. ELEVATED TEMP NOTED ON 7P-7A SHIFT. AM MEDS ADMINISTERED ORDERED EXCEPT LEVEMIR AND REGULAR INSULIN R/T BG=85. PT TOLERATED AM MEDS WITH NO DIFFICULTY SWALLOWING. CONTINUE TO MONITOR.
--- NOTE | 2021-10-28 10:57 | NUR ---
BED ALARM ON AT ALL TIMES. PT ATTEMPTED TO GET OUT OF BED TO VOID IN URINAL. SUPERVISION NEEDED. PT CONTINUES TO HAVE LOW GRADE TEMP=99.3 AT PRESENT TIME. PT BECOMES TACHYCARDIA WHILE RESTING QUIETLY IN BED. HCP ORDERED CT OF BRAIN R/T FOOT SPECIALIST'S CONCERNS OF FACIAL DROOPING AND PT "DRAGGING" LEFT FOOT WHEN WALKING. CHARGE NURSE NOTIFIED HCP(SHAYY) OF PTS ELEVATED HR. CONTINUE TO MONITOR.
--- NOTE | 2021-10-28 12:57 | NUR ---
RENTAL MANAGER, TRESSA CALLED FOR UPDATE ON PT, RETURNED CALL AT 1220. PT HAD CT SCAN OF BRAIN. VOIDS IN URINAL W/ SUPERVISION ONLY. GIVEN A BATH W/ MINIMUM ASSISTANCE NEEDED BY NS STAFF,SUPERVISION NEEDED. BLOOD VHHMPQV=907, NO INSULIN ADMINISTERED PER SLIDING SCALE PROTOCOL. GOOD APPETITE,FEEDS HIMSELF WITH SET UP ONLY. EATS 100% OF MEAL. CONTINUE TO MONITOR.
--- NOTE | 2021-10-28 14:52 | NUR ---
PT AMBULATED TO SIDE OF BED TO VOID IN URINAL, SUPERVISION NEEDED TO PREVENT PT FROM FALLING. C/O BACK ITCHING AND STATES "CAN YOU SCRATCH MY BACK" HONORED PTS REQUEST. CONTINUE TO MONITOR.
--- NOTE | 2021-10-28 16:09 | NUR ---
SET UP DINNER TRAY AND PT FED HIMSELF. NO DIFFICULTY NOTED. ATE 100% OF MEAL SITTING UP ON THE SIDE OF BED. ASSISTED PT WITH GETTING OUT OF BED TO VOID IN URINAL, STEADY GAIT. NO INSULIN ADMINISTERED AT 1600 PER SLIDIMG SCALE PROTOCOL, BG=85. CONTINUE TO MONITOR.
--- NOTE | 2021-10-28 16:53 | NUR ---
PT RESTING QUIETLY WITH EYES CLOSED AFTER TAKING 1700 MEDS ORDERED. IVF INFUSING ORDERED AT 75ML/HR OF NS. NAD NOTED. 1600 INSULIN NOT ADMINISTERED, BG=85. PT GIVEN DINNER TRAY AND ATE 10O0% OF MEAL
--- NOTE | 2021-10-28 18:01 | NUR ---
WOUND CARE COMPLETED TO DECUBITIS ON SACRUM. CLEANED W/ NS, DRIED WITH 4X4 GAUZE, APPLIED MEDIHONEY, COVERED W/ 2X3 INCH NON-ADHESIVE TELFA AND SECURED W/ TAPE. NO DRAINAGE NOTED. PT TOLERATED WELL. NO VOLUNTARY MOVEMENT OF LOWER EXTREMITIES. HEEL BOOTS INTACT TO BILATERAL FEET AND JONN HOSE INTACT TO BILATERAL EXTREMITIES. IVF INFUSING AT 75ML/HR OF NS TO LEFT RIGHT WRIST W/ NO SWELLING/REDNESS NOTED. PT REFUSED BED BATH. CONTINUE TO MONITOR.
--- NOTE | 2021-10-28 19:10 | NUR ---
NOTIFIED BY 7P-7A TECH THAT PTS TEMP [id number], ADMINISTERED TYLENOL ORDERED PO AND PT TOLERATED WELL. SKIN WARM/DRY. REPORTED TO ON-COMING NURSE Eve SORIANO RN. CONTINUE TO MONITOR.
--- NOTE | 2021-10-28 20:20 | NUR ---
PT AWAKE WITH NO DISTRESS NOTED, RESP RATE NONLABORED, PT JOKING SOME WITH REDUCING SALON ATTENDANT AND LAUGHING. RECHECK OF TEMP SINCE PRN TYLENOL GIVEN CURRENT ORAL TEMP IS 100.5(DECREASED). IV INTACT TO R HAND WITH NS INFUSING AT 75ML/HR, ON ROOM AIR, RESP RATE NONLABORED, BS+ AND NOTE PT HAVING GAS OFTEN, ABD APPEARS DISTENDED AND SOFT, PT MORE TALKATIVE WITH STAFF TONIGHT APPEARS TO BE FEELING BETTER, RADIAL PULSES INTACT/EQUAL, LUNGS CLEAR. WILL MONITOR CLOSELY, RAILS UP, CALL LIGHT IN REACH, BED IN LOW POSITION WITH ALARM ON, URINAL WITH IN REACH, ENCOURAGED TO CALL NEEDED.
--- NOTE | 2021-10-28 21:26 | NUR ---
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 DENIES ANY PROBLEMS OR NEEDS. RAILS UP, BED IN LOW POSITION WITH ALARM ON, CALL LIGHT IN REACH.
--- NOTE | 2021-10-28 23:28 | NUR ---
PT FOUND AWAKE LAYING IN BED WITH NO ACUTE DISTRESS NOTED. NOTE IV TO R HAND FOUND ACCIDENTLY PULLED OUT. APPLIED GAUZE TO AREA AND BLEEDING STOPPED, NO PROBLEMS NOTED TO AREA. WILL RETURN TO START A NEW IV SITE. PT DENIES ANY PROBLEMS OR NEEDS AT THIS TIME. RAILS UP, BED IN LOW POSITION WITH ALARM ON, CALL LIGHT IN REACH, URINAL WITHIN PT'S REACH. ENCOURAGED TO CALL NEEDED.
[2021-10-29] VITALS: BP 125/58; TEMP 98.9
--- NOTE | 2021-10-29 01:00 | NUR ---
NEW IV SITE OBTAINED TO L HAND 22G X 2 STICKS TOTAL(1 BY FARM TRACTOR OPERATOR AND THIS IV SITE STARTED BY Santiago BLACKMAN RN), GOOD BLOOD RETURN NOTED FLUSHED WITH 10ML NS, SECURED WITH TAPE AND TEGADERM, PT TOLERATED WITH NO PROBLEMS.
--- NOTE | 2021-10-29 01:26 | NUR ---
PT AWAKE WITH NO DISTRESS NOTED, RESP STAFF AT BEDSIDE TO GIVE NEB TREATMENT, WILL MONITOR CLOSELY, RAILS UP, BED IN LOW POSITION, CALL LIGHT IN REACH.
--- NOTE | 2021-10-29 02:05 | NUR ---
RESTING IN BED WITH EYES CLOSED IN POSITION OF COMFORT ON HIS SIDE, NO S/S OF PAIN OR DISTRESS NOTED, RESP RATE NONLABORED, IV INTACT TO L HAND WITH NS INFUSING AT 75ML/HR, TELEMETRY IN USE, URINAL WITHIN REACH. RAILS UP X3, BED IN LOW POSITION WITH ALARM ON, CALL LIGHT IN REACH.
[2021-10-29 04:00] VITALS: BP 116/53; TEMP 98.8
--- NOTE | 2021-10-29 04:20 | NUR ---
RESTING IN BED WITH EYES CLOSED, NO S/S OF PAIN OR DISTRESS NOTED, RESP RATE NONLABORED, IV INTACT, WILL MONITOR CLOSELY, RAILS UP, BED IN LOW POSITION, URINAL IN REACH.
--- NOTE | 2021-10-29 06:02 | NUR ---
PT FOUND RESTING ON HIS L SIDE WITH EYES CLOSED, NO S/S OF PAIN OR DISTRESS NOTED, IV INTACT WITH FLUID ONGOING, TELEMETRY IN USE. AROUSES BRIEFLY AND DENIES ANY PROBLEMS OR NEEDS. 0700 MEDICATION GIVEN. RAILS UP, BED IN LOW POSITION WITH ALARM ON, CALL LIGHT IN REACH.
[2021-10-29 07:41] VITALS: BP 115/52; TEMP 99.1
--- NOTE | 2021-10-29 08:17 | NUR ---
PT AWAKE AND RECEIVING NEB TX. AFTER NEB TX COMPLETED. ASSISTED PT TO SITTING ON THE SIDE OF THE BED TO EAT BREAKFAST. ATE 100% OF MEAL. FEEDS HIMSELF. AFTER BREAKFAST SUPERVISED PT WHILE HE STOOD UP BESIDE THE BED TO ACCESS URINAL. DENIES ANY PAIN/DISCOMFORT. PT STATES "MY BIRTHDAY IS ON THE OF THIS MONTH." PT CORRECT. IV SITE TO LEFT HAND INTACT AND IVF INFUSING AT 75ML/HR ORDERED OF NS. CONTINUE TO MONITOR.
--- NOTE | 2021-10-29 08:45 | NUR ---
AM MEDS ADMINISTERED ORDERD AND PT TOLERATED WELL. LEVEMIR NOT ADMINISTERED, CLINICAL JUDGEMENT, BG=90. CONTINUE TO MONITOR.
--- NOTE | 2021-10-29 10:42 | NUR ---
PT ASSISTED TO CHAIR AND ASSISTED WITH BED BATH. PT ABLE TO WASH HIMSELF, MINIMUM ASSISTANCE NEEDED. WASHED HAIR AND DRIED. REQUESTED A DIET COKE TO DRINK, HONORED PTS REQUEST. PT ASSISTED TO BED SIDE COMMODE AND HAD A BM, SOFT AND FORMED, DARK BROWN. FIRST BM PT HAS HAD SINCE ADMITTED. ABD WAS DISTENDED AND SOFT DURING NSG ASSESSMENT. PER HCP (SHAYY), PT POSSIBLY [facility]. CONTINUE TO MONITOR.
[2021-10-29 11:39] VITALS: BP 111/48; TEMP 98.4
[2021-10-29] MEDS ORDERED: INSU300I SC ×2 (12:13)
[2021-10-29] MEDS ORDERED: LEVAQUIN250 MG PO ×2 (12:14)
--- NOTE | 2021-10-29 12:47 | NUR ---
PT [facility]. NEW PRESCRIPTION SENT [facility] TO [facility]. LEVAQUIN DOSE ADMINISTERED BEFORE DISCHARGE ORDERED. IV SITE TO RIGHT HAND D/C'D W/ NO SWELLING/REDNESS NOTED. TELEMETRY D/C'D. CONSULT FOR SEWING DEMONSTRATOR WILL BE SET UP ON NEXT BUSINESS , SATURDAY BY MANUFACTURING PROJECT MANAGERCLERK [place] WITH DR LEONARDO OR ARNOLD. NOTIFIED CREDIT VERIFICATION CLERK TRESSA OF PTS DISCHARGE. WILL DISCUSS DISCHARGE INSTRUCTIONS AND PT ED ON DIABETIC DIET AND MED CHANGES WITH CREDIT VERIFICATION CLERKTRESSA WHEN SHE ARRIVES TO TRANSPORT PT BACK TO [facility].
--- NOTE | 2021-10-29 14:00 | NUR ---
PTS CAREGIVER, TRESSA ARRIVED TO TRANSPORT PT BACK TO [facility]. DISCHARGE INSTRUCTIONS GIVEN TO TRESSA AND PT ED ON DIABETIC DIET. NEW PRESCRIPTIONS WERE CALLED TO [facility] [place] DUE TO [facility]TS PHARMACY, [facility] WILL BE CLOSED UNTIL SATURDAY R/T HOLIDAY. PT TRANSPORTED OUT OF FACILITY VIA WHEELCHAIR AT 1348.
--- NOTE | 2021-10-29 14:07 | NUR ---
PRESCRIPTION FOR LEVEMIR 35 UNITS SQ BID AND LEVAQUIN 750 MG PO QD X 5 DAYS CALLED IN TO [facility] AND GIVEN TO TEAPHARMACIST AT 1405 ON 10/29/21. MAP MAKER TRESSA AWARE AND WILL NURSE DISCHARGE PLANNER PRESCRIPTION.
== END 2021-10-29 13:48 | disposition home or self-care (01) ==
LOC: ED 13:04 → MED/SURG 13:50
PROVIDERS: Hospitalist; ADMIT Internal Medicine; ATTEND Internal Medicine
DX: N39.0 Urinary tract infection, site not specified (principal); E11.65 Type 2 diabetes mellitus with hyperglycemia; Z79.4 Long term (current) use of insulin; D72.828 Other elevated white blood cell count; N40.0 Benign prostatic hyperplasia without lower urinary tract symptoms; G31.84 Mild cognitive impairment of uncertain or unknown etiology; J44.9 Chronic obstructive pulmonary disease, unspecified; B96.1 Klebsiella pneumoniae [K. pneumoniae] as the cause of diseases classified elsewhere; R00.0 Tachycardia, unspecified; R53.1 Weakness; G92.8 Other toxic encephalopathy; Z86.73 Personal history of transient ischemic attack (TIA), and cerebral infarction without residual deficits; K21.9 Gastro-esophageal reflux disease without esophagitis; E86.0 Dehydration; I51.7 Cardiomegaly
CPT/HCPCS: 36415; 80048; 80053; 80320; 81002; 82550; 82948; 83880; 84443; 84484; 85027; 85610; 85730; 87635; 93005; 94664; 94760; 96360; 96361; 96365; 96367; 96372; 96375; 99220; 99284; J1956; G0378; J1650; J1815; U0003